=== PATIENT | female | born 1980 | race Caucasian/White ===

== ENCOUNTER 2019-06-21 07:29 | Emergency (ER) | payer BC ==
[2019-06-21 07:45] VITALS: BP 115/74; PULSE 126; TEMP 101; BMI 39.7
[2019-06-21] MEDS ORDERED: IBUPROFEN 600 MG TABLET (FP) PO ONE ×2 (07:50→08:10)
[2019-06-21] MEDS ORDERED: DEXAMETHASONE LIQUID 0.5 MG/5 ML PO ONE (07:50)
--- NOTE | 2019-06-21 07:54 | PDOC ---
History of Present Illness - General Chief Complaint: Sore Throat Stated Complaint: THROAT PAIN Time Seen by Provider: 06/21/19 07:36 - History of Present Illness Initial Comments: 06/21/19 07:51 CHIEF COMPLAINT: sore throat HISTORY OF PRESENT ILLNESS: 39 yo F presents to ED with b/l throat pain x 3 days with accompanying fever. Patient reports pain with swallowing. Denies cough, runny nose, sinus congestion, or other URI symptoms. Patient is speaking in full sentences without respiratory compromise . No recent travel or sick contacts. PAST MEDICAL HISTORY: Denies past medical history FAMILY HISTORY: Denies SOCIAL HISTORY: Denies tobacco, alcohol, illicit drug use. SURGICAL HISTORY: Denies ALLERGIES: No known drug allergies REVIEW OF SYSTEMS General/Constitutional: Denies fever or chills. Denies weakness, weight change. HEENT: Sore throat x 3 days. Cardiovascular: Denies chest pain or shortness of breath. Respiratory: Denies cough, wheezing, or hemoptysis. Gastrointestinal: Denies nausea, vomiting, diarrhea or constipation. Denies rectal bleeding. Genitourinary: Denies dysuria, frequency, or change in urination. Musculoskeletal: Denies joint or muscle swelling or pain. Denies neck or back pain. Skin and breasts: Denies rash or easy bruising. Neurologic: Denies headache, vertigo, loss of consciousness, or loss of sensation. Psychiatric: Denies depression or anxiety. PHYSICAL EXAM General Appearance: Well-appearing, appropriately dressed. No apparent distress , no intoxication. HEENT: Tonsils 3+ b/l with erythema. No tonsillar abscess appreciated. No exudates. EOMI, PERRLA, normal ENT inspection, normal voice, TMs normal, pharynx normal. No conjunctival pallor. No photophobia, scleral icterus. Neck: Supple. Trachea midline. No tenderness, rigidity, carotid bruit, stridor , lymphadenopathy, or thyromegaly. Respiratory/Chest: Lungs CTAB. No shortness of breath, chest tenderness, respiratory distress, accessory muscle use. No crackles, rales, rhonchi, stridor , wheezing, dullness Cardiovascular: RRR. S1, S2. No JVD, murmur, bradycardia, tachycardia. Vascular Pulses: Dorsalis-Pedis (R): 2+, Dorsalis-Pedis (L): 2+ Gastrointestinal/Abdominal: Normal bowel sounds. Abdomen soft, non-distended. No tenderness or rebound tenderness. No organomegaly, pulsatile mass, guarding , hernia, hepatomegaly, splenomegaly. Lymphatic: No adenopathy, tenderness. Musculoskeletal/Extremities: Normal inspection. FROM of all extremities, normal capillary refill. Pelvis Stable. No CVA tenderness. No tenderness to extremities, pedal edema, swelling, erythema or deformity. Integumentary: Appropriate color, dry, warm. No cyanosis, erythema, jaundice or rash Neurologic: calender tender II-XII intact. Fully oriented, alert. Appropriate mood/affect. Motor strength 5/5. No appreciable EOM palsy, facial droop or sensory deficit. Past History - Past Medical History Allergies/Adverse Reactions: Allergies Allergy/AdvReac Type Severity Reaction Status Date / Time No Known Allergies Allergy Verified 06/21/19 07:45 Home Medications: Ambulatory Orders Ciprofloxacin [Cipro (Restricted To Id)] 500 mg PO BID #6 tablet 07/20/11 Amoxicillin/Potassium Clav [Augmentin 875-125 Tablet] 1 each PO BID #20 tablet 06/21/19 Anemia: Yes COPD: No - Surgical History Cholecystectomy: Yes - Psycho Social/Smoking Cessation Hx Smoking Status: No Smoking History: Never smoked Have you smoked in the past 12 months: No Number of Cigarettes Smoked Daily: 0 Information on smoking cessation initiated: No Hx Alcohol Use: No Drug/Substance Use Hx: No *Physical Exam - Vital Signs Last Vital Signs Temp Pulse Resp BP Pulse Ox 101 F H 126 H 20 115/74 97 06/21/19 07:43 06/21/19 07:43 06/21/19 07:43 06/21/19 07:43 06/21/19 07:43 Medical Decision Making - Medical Decision Making 06/21/19 07:53 39 yo F presents to ED with b/l throat pain x 3 days with accompanying fever. -strep swab -decadron -motrin 06/21/19 09:33 Strep positive. Augmentin rx sent to pharm. Advised patient to take medication as prescribed and follow up with PCP within the next 3 days for continued monitoring of throat symptoms. Advised patient of signs and symptoms for return to ED. Patient verbalized understanding and agrees to plan. Discharge - Discharge Information Problems reviewed: Yes Clinical Impression/Diagnosis: Strep tonsillitis Condition: Stable Disposition: HOME - Admission No - Additional Discharge Information Prescriptions: Amoxicillin/Potassium Clav [Augmentin 875-125 Tablet] 1 each PO BID #20 tablet - Follow up/Referral Referrals: Ren Ribeiro [Primary Care Provider] - - Patient Discharge Instructions Patient Printed Discharge Instructions: DI for Strep Throat - Post Discharge Activity Work/Back to School Note: Back to Work
[2019-06-21] MEDS ORDERED: DEXAMETHASONE SOD PHOSPHATE 10 MG/1 ML VIAL ONE (08:09)
== END 2019-06-21 09:05 | disposition home or self-care (01) ==
LOC: JER 07:29
DX: J03.00 Acute streptococcal tonsillitis, unspecified (principal)
CPT/HCPCS: 87880; 99284-25

== ENCOUNTER 2019-11-25 17:48 | Emergency (ER) | payer BC ==
[2019-11-25 17:59] VITALS: BMI 39.9
[2019-11-25] MEDS ORDERED: SODIUM CHLORIDE 0.9% 500 ML INFUS.BAG IV ONE (18:16)
--- NOTE | 2019-11-25 18:32 | PDOC ---
History of Present Illness - General Chief Complaint: Pain Stated Complaint: ABD PAIN Time Seen by Provider: 11/25/19 18:07 History Source: Patient Exam Limitations: No Limitations - History of Present Illness Initial Comments: 11/25/19 18:29 39-year-old female history of anemia requiring iron infusions 1 year ago, patient has had 1 , 2 epidurals and a partial hysterectomy, presented complaining of constant abdominal pain for 24 hours radiating to right upper back. Denies nausea, vomiting, fever, chills, chest pain, shortness of breath, urinary complaints, vaginal bleeding or discharge. Patient was seen at [facility] today had unremarkable labs and normal abdominal x-ray. Was sent to ED for CTAP to rule out appendicitis. ROS: as above PE: GENERAL: well-appearing, NAD, obese HEAD: NCAT EYES: Pupils equal, round and reactive to light, sclera anicteric, conjunctiva clear ENT: pharynx: no erythema, no exudate, uvula midline NECK: supple CHEST: nontender RESP: clear, no w/r/r CARDIO: rrr, no m/g/r ABD: +BS, soft, periumbilical tenderness to palpation, no rebound, no guarding BACK: no midline spinal ttp, no CVAT EXTREMITIES: Normal range of motion, no edema NEUROLOGICAL: Normal speech, normal gait SKIN: Warm, Dry Is this a multiple visit Asthma Patient?: No Past History - Medical History Allergies/Adverse Reactions: Allergies Allergy/AdvReac Type Severity Reaction Status Date / Time No Known Allergies Allergy Verified 11/25/19 17:53 Home Medications: Ambulatory Orders NK [No Known Home Medication] 11/25/19 Anemia: Yes COPD: No - Surgical History Cholecystectomy: Yes - Reproductive History Is Patient Now?: No - Psycho-Social/Smoking History Smoking Status: No Smoking History: Never smoked Have you smoked in the past 12 months: No Number of Cigarettes Smoked Daily: 0 - Substance Abuse Hx (Audit-C & DAST Scrn) How often the patient has a drink containing alcohol: Never Score: In Men: 4 or > Positive; In Women: 3 or > Positive: 0 Screen Result (Pos requires Nsg. Audit-10AR): Negative In the last yr the pt used illegal drug/Rx for NonMed reason: No Score: Yes response is considered Positive: 0 Screen Result (Positive result requires Nsg. DAST-10): Negative *Physical Exam - Vital Signs Last Vital Signs Temp Pulse Resp BP Pulse Ox 98.4 F 97 H 16 117/92 99 11/25/19 17:55 11/25/19 17:55 11/25/19 17:55 11/25/19 17:55 11/25/19 17:55 ED Treatment Course - LABORATORY CBC & Chemistry Diagram: 11/25/19 19:13 11/25/19 19:13 - RADIOLOGY Radiology Studies Ordered: Category Date Time Status ABDOMEN & PELVIS CT WITH CONTR [CT] Stat CT Scan 11/25/19 18:16 Ordered CHEST PA & LAT [RAD] Stat Radiology 11/25/19 18:15 Ordered Medical Decision Making - Medical Decision Making 11/25/19 18:31 39-year-old female history of anemia requiring iron infusions 1 year ago, patient has had 1 , 2 epidurals and a partial hysterectomy, presented complaining of constant abdominal pain for 24 hours radiating to right upper back. Denies nausea, vomiting, fever, chills, chest pain, shortness of breath, urinary complaints, vaginal bleeding or discharge. Patient was seen at [facility] today had unremarkable labs and normal abdominal x-ray. Was sent to ED for CTAP to rule out appendicitis. Labs including type and screen UA, urine culture EKG, chest x-ray Urine CTAP w/con Reassess 11/25/19 21:59 Reviewed labs CTAP: No appendicitis, 2 cm right ovarian cyst and right resembling recent ruptured ovarian follicle Reviewed CT results Discussed these results with patient, patient agrees to follow-up with [employer] Stable for discharge Discharge - Discharge Information Problems reviewed: Yes Clinical Impression/Diagnosis: Abdominal pain Qualifiers: Abdominal location: periumbilical Qualified Code(s): R10.33 - Periumbilical pain Condition: Stable Disposition: HOME - Admission No - Follow up/Referral - Patient Discharge Instructions Additional Instructions: You are advised to follow-up with your anger control counselor within 1 week If you develop fever, chills worsening abdominal pain or any concerning symptom return to ED - Post Discharge Activity
[2019-11-25 19:20] LABS: BASO % 0.9 % (0-2.0); HEMATOCRIT 41.3 % (32.4-45.2); HEMOGLOBIN 13.8 GM/dL (10.7-15.3); LYMPH % 35.7 % (8-40); MCH 30.8 pg (25.7-33.7); MCHC 33.4 g/dl (32.0-36.0); MEAN CELL VOLUME 92.1 fl (80-96); MEAN PLT VOLUME 9.5 fl (7.5-11.1); MONO % 6.4 % (3.8-10.2); PLATELET COUNT 260 K/MM3 (134-434); RBC 4.48 M/mm3 (3.60-5.2); RDW 13.2 % (11.6-15.6); WHITE BLOOD COUNT 9.2 K/mm3 (4.0-10.0)
[2019-11-25 19:26] LABS: PH,URINE 5.5 (5.0-8.0); URINE APPEARANCE CLOUDY; URINE BILIRUBIN NEGATIVE (NEGATIVE); URINE COLOR YELLOW; URINE GLUCOSE (UA) NEGATIVE (NEGATIVE); URINE KETONE TRACE (NEGATIVE); URINE LEUK ESTERASE NEGATIVE (NEGATIVE); URINE NITRITE NEGATIVE (NEGATIVE); URINE PROTEIN NEGATIVE (NEGATIVE)
[2019-11-25 19:29] LABS: INR 1.01 (0.83-1.09); PROTHROMBIN TIME (PATIENT) 11.9 SEC (9.7-13.0)
[2019-11-25 19:31] LABS: ACTIVATED PTT 34.7 SECONDS (25.2-36.5)
[2019-11-25 19:47] LABS: ALBUMIN 4.1 g/dl (3.4-5.0); BLOOD UREA NITROGEN 6.8 mg/dL (7-18); CALCIUM 9.1 mg/dL (8.5-10.1); CREATININE 0.7 mg/dL (0.55-1.3); POTASSIUM 3.8 mmol/L (3.5-5.1); TOT PROT 7.8 g/dl (6.4-8.2)
[2019-11-25 19:47] LABS: HCG,QUALITATIVE URINE Negative
[2019-11-25 22:39] VITALS: BP 120/84; PULSE 85; TEMP 98.1
--- NOTE | 2019-11-26 08:53 | EKG ---
Test Reason : Blood Pressure : / mmHG Vent. Rate : 070 BPM Atrial Rate : 070 BPM P-R Int : 124 ms QRS Dur : 086 ms QT Int : 396 ms P-R-T Axes : 032 035 018 degrees QTc Int : 427 ms SINUS RHYTHM WITH PREMATURE SUPRAVENTRICULAR COMPLEXES OTHERWISE NORMAL ECG NO PREVIOUS ECGS AVAILABLE Confirmed by Lucie Roberts ([id number]) on 11/26/2019 8:52:58 AM Referred By: Confirmed By:Lucie Roberts
== END 2019-11-25 22:24 | disposition home or self-care (01) ==
LOC: JER 17:48
DX: R10.33 Periumbilical pain (principal)
CPT/HCPCS: 36415; 71046-TC-FY; 74177-TC; 80053; 81003; 83690; 84703; 85025; 85610; 85730; 86850; 86900; 86901; 87086; 93005; 93010; 99285-25; Q9967